=== PATIENT | female | born 1960 | race Caucasian/White ===

== ENCOUNTER 2020-01-15 11:59 | Outpatient (CLI) | payer MEDICAID | END 2020-01-15 23:59 | disposition home or self-care (01) | LOC: LAB 11:59 | PROVIDERS: ATTEND Student in an Organized Health Care Education/Training Program | DX: Z01.812 Encounter for preprocedural laboratory examination (principal); Z20.828 Contact with and (suspected) exposure to other viral communicable diseases | CPT/HCPCS: 87426; C9803; U0003 ==

== ENCOUNTER 2020-01-20 05:56 | Day surgery (SDC) | payer MEDICAID ==
[2020-01-20] MEDS ORDERED: ANESTHESIA TRAY IN PYXIS 1 EA TRAY MC ONE (06:52)
[2020-01-20] MEDS ORDERED: FENTANYL PF 250MCG/5ML AMPUL ONE (07:01)
[2020-01-20] MEDS ORDERED: MIDAZOLAM HCL 2 MG/2ML VIAL ONE (07:01)
[2020-01-20] MEDS ORDERED: FAMOTIDINE/PF INJ 20 MG/2 ML VIAL IV ONE (07:02)
[2020-01-20] MEDS ORDERED: EPINEPHRINE (1:1000) 1 MG/ML AMPUL ONE (07:04)
[2020-01-20] MEDS ORDERED: BUPIVACAINE 0.5 % PF 150 MG/30 ML VIAL ONE ×2 (07:05→08:09)
[2020-01-20] MEDS ORDERED: MORPHINE SULFATE/PF 10 MG/10ML (1MG/ML) AMPUL ONE (08:09)
== END 2020-01-20 10:25 | disposition home or self-care (01) ==
LOC: DS 05:56 → MED 05:59 → DS 10:25
PROVIDERS: ATTEND Student in an Organized Health Care Education/Training Program
DX: S83.231A Complex tear of medial meniscus, current injury, right knee, initial encounter (principal); M94.261 Chondromalacia, right knee; E11.9 Type 2 diabetes mellitus without complications; E66.3 Overweight; X58.XXXA Exposure to other specified factors, initial encounter; Y93.89 Activity, other specified; Y92.89 Other specified places as the place of occurrence of the external cause; Y99.8 Other external cause status
CPT/HCPCS: 29881; 71045; 82962 ×2; 93005; A4217; A6253; J0171; J0690; J2250; J2274; J2405; J2704; J2765; J3010; J3490 ×3